=== PATIENT | female | born 1950 | race African-American/Black ===

== ENCOUNTER 2020-08-06 16:33 | Inpatient (IN) ==
[2020-08-06] MEDS ORDERED: Melatonin 3 MG TABLET PO PRN (20:04)
[2020-08-06] MEDS ORDERED: D5% in Water 1,000 ML IVC PRN (20:06)
[2020-08-06] MEDS ORDERED: Dextrose Gel 15 GM/37.5 ML TUBE PO PRN ×2 (20:06)
[2020-08-06] MEDS ORDERED: *HR* Dextrose 50 % in Water (Vial) 50 ML VIAL IVP PRN (20:06)
[2020-08-06] MEDS: Insulin LISPRO 300 UNITS/3 ML VIAL SUBQ SCH ×2 (22:05→22:10)
[2020-08-06] MEDS: Cefdinir 300 MG CAPSULE PO SCH (22:12)
[2020-08-06] MEDS: Pregabalin 50 MG CAPSULE PO SCH (22:12)
[2020-08-06] MEDS: QUEtiapine Fumarate 25 MG TABLET PO SCH (22:13)
[2020-08-06] MEDS ORDERED: Insulin DETEMIR 100 UNIT/ML per UNIT SUBQ ONE (22:30)
[2020-08-07] MEDS ORDERED: *HR* Enoxaparin 40 MG/0.4 ML SYRINGE SQ SCH ×2 (07:00→09:00)
[2020-08-07] MEDS: lisinopriL 5 MG TABLET PO SCH (07:53)
[2020-08-07] MEDS: Magnesium Oxide 400 MG TABLET PO SCH (08:25)
[2020-08-07] MEDS: Venlafaxine XR (24 HR) 150 MG CAP.ER.24H PO SCH (08:25)
[2020-08-07] MEDS: Cefdinir 300 MG CAPSULE PO SCH ×2 (08:25→20:31)
[2020-08-07] MEDS: Loratadine 10 MG TABLET PO SCH (08:25)
[2020-08-07] MEDS: Pregabalin 50 MG CAPSULE PO SCH ×3 (08:25→20:30)
[2020-08-07] MEDS: Insulin LISPRO 300 UNITS/3 ML VIAL SUBQ SCH ×7 (08:26→20:31)
[2020-08-07 08:30] LABS: Basophils % 0.3 %; Eosinophils % 0.9 %; Hematocrit 28.4 % (35.3-44.9); Immature Granulocytes % 1.8 % (0-4); Lymphocytes # 0.9 K/mcL (0.6-4.6); Lymphocytes % 27.1 %; Mean Corpuscular HGB Conc 31.7 g/dL (31.6-35.5); Mean Corpuscular Hemoglobin 31.1 pg (28.0-33.3); Mean Corpuscular Volume 98.3 fL (83.0-100.0); Monocytes # 0.6 K/mcL (0.0-1.3); Monocytes % 16.7 %; Neutrophils # 1.8 K/mcL (1.6-8.9); Red Blood Count 2.89 M/mcL (3.82-4.97); Red Cell Distribution Width 14.5 % (11.5-14.5); Segmented Neutrophils % 53.2 %; White Blood Count 3.3 K/mcL (4.3-11.1)
[2020-08-07 08:33] LABS: Platelet Count 94 K/mcL (140-400)
[2020-08-07 08:41] LABS: Calcium 9.1 mg/dL (8.6-10.3); Potassium 4.1 mEq/L (3.5-5.1)
[2020-08-07] MEDS: Furosemide 40 MG TABLET PO SCH (08:50)
[2020-08-07] MEDS: *HR* OxyCODONE Immed Rel 5 MG TABLET PO PRN (08:50)
[2020-08-07] MEDS: Metoprolol XL (24 HR) Succ 50 MG TAB.ER.24H PO SCH (08:50)
[2020-08-07] MEDS ORDERED: Insulin DETEMIR 100 UNIT/ML X5UNITS SUBQ SCH (09:00)
[2020-08-07] MEDS: Insulin DETEMIR 100 UNIT/ML X5UNITS SUBQ SCH (16:07)
[2020-08-07] MEDS: QUEtiapine Fumarate 25 MG TABLET PO SCH (20:31)
[2020-08-07] MEDS ORDERED: Dulaglutide [Trulicity] 1.5 MG/0.5 ML Pen.Injctr SQ SCH (21:00)
[2020-08-08] MEDS: *HR* OxyCODONE Immed Rel 5 MG TABLET PO PRN ×3 (02:25→22:30)
[2020-08-08] MEDS: Furosemide 40 MG TABLET PO SCH (08:29)
[2020-08-08] MEDS: Magnesium Oxide 400 MG TABLET PO SCH (08:30)
[2020-08-08] MEDS: Metoprolol XL (24 HR) Succ 50 MG TAB.ER.24H PO SCH (08:30)
[2020-08-08] MEDS: lisinopriL 5 MG TABLET PO SCH (08:30)
[2020-08-08] MEDS: Pregabalin 50 MG CAPSULE PO SCH ×3 (08:30→20:28)
[2020-08-08] MEDS: Cefdinir 300 MG CAPSULE PO SCH ×2 (08:30→20:28)
[2020-08-08] MEDS: Venlafaxine XR (24 HR) 150 MG CAP.ER.24H PO SCH (08:30)
[2020-08-08] MEDS: Loratadine 10 MG TABLET PO SCH (08:33)
[2020-08-08] MEDS: Insulin LISPRO 300 UNITS/3 ML VIAL SUBQ SCH ×7 (08:33→20:27)
[2020-08-08] MEDS: Insulin DETEMIR 100 UNIT/ML X5UNITS SUBQ SCH ×2 (08:39→20:28)
[2020-08-08] MEDS: QUEtiapine Fumarate 25 MG TABLET PO SCH (20:28)
[2020-08-09] MEDS: *HR* OxyCODONE Immed Rel 5 MG TABLET PO PRN ×3 (06:35→20:27)
[2020-08-09] MEDS ORDERED: calcitrioL 0.25 MCG CAPSULE PO SCH (09:00)
[2020-08-09] MEDS: Magnesium Oxide 400 MG TABLET PO SCH (09:04)
[2020-08-09] MEDS: Cefdinir 300 MG CAPSULE PO SCH ×2 (09:04→20:27)
[2020-08-09] MEDS: Loratadine 10 MG TABLET PO SCH (09:04)
[2020-08-09] MEDS: Metoprolol XL (24 HR) Succ 50 MG TAB.ER.24H PO SCH (09:04)
[2020-08-09] MEDS: lisinopriL 5 MG TABLET PO SCH (09:04)
[2020-08-09] MEDS: Venlafaxine XR (24 HR) 150 MG CAP.ER.24H PO SCH (09:04)
[2020-08-09] MEDS: Pregabalin 50 MG CAPSULE PO SCH ×3 (09:05→20:28)
[2020-08-09] MEDS: Furosemide 40 MG TABLET PO SCH (09:05)
[2020-08-09] MEDS: Insulin LISPRO 300 UNITS/3 ML VIAL SUBQ SCH ×7 (09:22→20:28)
[2020-08-09] MEDS: Insulin DETEMIR 100 UNIT/ML X5UNITS SUBQ SCH ×2 (09:23→20:28)
[2020-08-09] MEDS: QUEtiapine Fumarate 25 MG TABLET PO SCH (20:27)
[2020-08-10 07:26] VITALS: BP 115/70
[2020-08-10] MEDS ORDERED: Ergocalciferol (VIT D2) 50,000 UNIT (1.25MG) CAP PO SCH (09:00)
[2020-08-10] MEDS: Venlafaxine XR (24 HR) 150 MG CAP.ER.24H PO SCH (09:37)
[2020-08-10] MEDS: Pregabalin 50 MG CAPSULE PO SCH (09:37)
[2020-08-10] MEDS: Magnesium Oxide 400 MG TABLET PO SCH (09:37)
[2020-08-10] MEDS: lisinopriL 5 MG TABLET PO SCH (09:37)
[2020-08-10] MEDS: Metoprolol XL (24 HR) Succ 50 MG TAB.ER.24H PO SCH (09:37)
[2020-08-10] MEDS: Cefdinir 300 MG CAPSULE PO SCH (09:38)
[2020-08-10] MEDS: Loratadine 10 MG TABLET PO SCH (09:38)
[2020-08-10] MEDS: Furosemide 40 MG TABLET PO SCH (09:38)
[2020-08-10] MEDS: Insulin DETEMIR 100 UNIT/ML X5UNITS SUBQ SCH (09:46)
[2020-08-10] MEDS: Insulin LISPRO 300 UNITS/3 ML VIAL SUBQ SCH ×2 (09:46→09:47)
[2020-08-10] MEDS: *HR* OxyCODONE Immed Rel 5 MG TABLET PO PRN (11:00)
== END 2020-08-10 11:15 | disposition home health service (06) | DRG 560 ==
LOC: INPGRE 18:48
PROVIDERS: ADMIT Family Medicine; ATTEND Family Medicine